=== PATIENT | male | born 1970 | race Caucasian/White ===

== ENCOUNTER 2025-03-24 09:46 | Emergency (ER) | payer MEDICARE, MEDICAID, SELFPAY ==
[2025-03-24 09:47] VITALS: BP 145/91; PULSE 78; RESP 14; TEMP 36.6; O2SAT 98; BMI 24.1
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
[2025-03-24 10:10] VITALS: BP 140/80; PULSE 74; RESP 16; TEMP 36.6; O2SAT 97
== END 2025-03-24 10:15 | disposition home or self-care (01) ==
LOC: ED 10:14
PROVIDERS: Emergency Provider Emergency Medicine; PCP Family Medicine; Visit Provider Emergency Medicine
DX: S81.851A Open bite, right lower leg, initial encounter (principal); W54.0XXA Bitten by dog, initial encounter; Y93.01 Activity, walking, marching and hiking; F17.210 Nicotine dependence, cigarettes, uncomplicated; Z79.899 Other long term (current) drug therapy
CPT/HCPCS: 99282